=== PATIENT | female | born 2000 | race Two or more races ===

== ENCOUNTER 2023-05-25 16:41 | Emergency (ER) | payer OTHER ==
[2023-05-25 16:50] VITALS: BP 112/64; PULSE 103; RESP 18; TEMP 98.3; BMI 29.2
[2023-05-25 18:29] LABS: BASO % 0.4 % (0-2.0); EOS % 1.3 % (0-4.5); LYMPH % 26.7 % (8-40); MCH 23.2 pg (25.7-33.7); MCHC 31.5 g/dl (32.0-36.0); MEAN CELL VOLUME 73.7 fl (80-96); MEAN PLT VOLUME 6.9 fl (7.5-11.1); MONO % 8.3 % (3.8-10.2); NEUT % 63.3 % (42.8-82.8); PLATELET COUNT 347 10^3/uL (134-434); RBC 4.74 M/mm3 (3.60-5.2); RDW 17.1 % (11.6-15.6); WHITE BLOOD COUNT 10.1 K/mm3 (4.0-10.0)
[2023-05-25 18:58] LABS: POTASSIUM 4.5 mmol/L (3.5-5.1)
[2023-05-25 19:00] LABS: BLOOD UREA NITROGEN 12.4 mg/dL (7-18); CALCIUM 8.6 mg/dL (8.5-10.1)
[2023-05-25 19:01] LABS: ALBUMIN 3.3 g/dl (3.4-5.0)
[2023-05-25 19:03] LABS: CREATININE 0.6 mg/dL (0.55-1.3)
[2023-05-25 19:05] LABS: BILIRUBIN,TOTAL 0.3 mg/dL (0.2-1); TOT PROT 7.3 g/dl (6.4-8.2)
== END 2023-05-25 22:25 | disposition home or self-care (01) ==
LOC: JER 16:41
DX: O20.9 Hemorrhage in early pregnancy, unspecified (principal); Z3A.08 8 weeks gestation of pregnancy
CPT/HCPCS: 36415; 76817-TC; 80053; 84702; 85025; 86850; 86900; 86901; 99284-25